=== PATIENT | female | born 1965 | race Caucasian/White ===

== ENCOUNTER 2017-03-25 18:20 | Emergency (ER) | payer BC ==
--- NOTE | ~2017-03-25 | CT4 ---
[facility] A Service of [facility] RADIOLOGY TEXT RESULTS PATIENT: MAGDALENA AMOR LOCATION: SED : 63 UNIT #: [id number] AGE: [address]: LINDA JONAS SEX: F ORDER DR: [id number] [address] [id number] [id number] MR#: [id number] Acc #: [id number] NAME: MAGDALENA AMOR : 1965 SEX: F STUDY DATE/TIME: 03/25/2017 19:20 UNIT: SED ROOM: STUDY DESCRIPTION: CT Abd and Pelv Wo Cont Attending Physician: (Poonam) Linda Jonas Ordering Physician: Ondina Andres A.P.R.N. MEDICAL IMAGING REPORT This report is preliminary unless electronic signature is present. EXAMINATION CT of abdomen and pelvis without contrast. DATE 03/25/2017 HISTORY Left flank pain radiating into left leg for 1 week. TECHNIQUE 5 mm axial images from lung bases through the lesser trochanters without intravenous or enteric contrast administration. Sagittal and coronal reformatted images were obtained. This CT exam was performed with one or more of the following radiation dose reduction techniques: automatic exposure control, adjustment of mA and/or kV according to patient size, and iterative reconstruction. FINDINGS ABDOMEN FINDINGS: Lung bases are clear. Heart size is normal. Cholecystectomy. Noncontrast appearance of the liver, spleen, pancreas, adrenals and kidneys is within normal limits. No urinary tract stone or hydronephrosis or perinephric inflammation is seen. Limited evaluation of bowel due to lack of enteric contrast but no focal bowel inflammation is seen. Presumed appendectomy. PELVIS FINDINGS: Small pelvic phleboliths are present bilaterally. No definite ureteral stone is identified. Urinary bladder is decompressed. Presumed hysterectomy. Rectum within normal limits. No acute osseous abnormalities are identified. Posterior disc osteophyte formation is present at L1-2. There is disc bulge at L5-S1. Mild posterior disc osteophyte formation at T12-L1, as well. [facility] A Service of [facility] RADIOLOGY TEXT RESULTS PATIENT: MAGDALENA AMOR LOCATION: SED : 63 UNIT #: [id number] AGE: [address]: LINDA JONAS SEX: F ORDER DR: IMPRESSION 1. No acute findings . 2. Cholecystectomy, presumed hysterectomy. 2. Degenerative disc bulge at L5-S1, posterior disc osteophyte formation at L1-2. If the patient has symptoms correlating to back pain or suspected radiculopathy, MRI of the lumbar spine without contrast may prove helpful for further evaluation, which can be performed on a nonemergent basis. Dictated by... Trudy Tomas M.D. THIS IS AN ELECTRONICALLY VERIFIED REPORT Trudy Tomas M.D. at 03/29/2017 5:01 PM MARJAN/shahrzad TD: 03/26/2017 01:06 JOB #: [id number] MEDICAL IMAGING REPORT Page 1 of 1
[2017-03-25] MEDS ORDERED: XANAX0.5 M1 (18:26)
[2017-03-25] MEDS ORDERED: HYDROCODON-ACE1 EAC5 (18:27)
[2017-03-25 18:57] LABS: URINE SOURCE CLEAN CATCH
[2017-03-25 19:00] LABS: MICRO INDICATED? YES; URINE APPEARANCE CLEAR; URINE BILIRUBIN NEG (NEG); URINE BLOOD 2+ (NEG); URINE COLOR YELLOW; URINE GLUCOSE NEG (NORM); URINE KETONE TRACE (NEG); URINE LEUKOCYTE ESTERASE NEG (NEG); URINE NITRATE NEG (NEG); URINE PH 5.5 (5-8); URINE PROTEIN NEG (NEG); URINE UROBILINOGEN 0.2 MG/DL (NORM)
[2017-03-25 19:09] LABS: BASOPHIL# 0.1 X10e3 (0-0.3); BASOPHIL% 0.8 % (0-2.5); EOSINOPHIL# 0.1 X10e3 (0-0.7); EOSINOPHIL% 0.6 % (0.0-7.0); HEMATOCRIT 47.9 % (35.0-45.0); HEMOGLOBIN 16.6 gm/dL (12.0-16.0); LYMPHOCYTE# 2.9 X10e3 (1.0-3.5); MEAN CELL VOLUME 92.6 FL (83-96); MEAN CORPUSCULAR HGB CONC 34.5 g/dL (30-36); MEAN PLATELET VOLUME 7.6 FL (6.5-11.5); MONOCYTE# 0.4 X10e3 (0-1.0); MONOCYTE% 4.3 % (3.0-12.0); NEUTROPHIL# 5.4 X10e3 (1.5-7.1); NEUTROPHIL% 61.3 % (40-75); PLATELET COUNT 320 X10e3 (140-420); RED BLOOD COUNT 5.18 X10e (3.90-5.30); WHITE BLOOD COUNT 8.9 X10e3 (4.0-10.5)
[2017-03-25 19:10] LABS: CULTURE INDICATED? NO; URINE BACTERIA NEG (NEG); URINE MUCUS PRESENT; URINE SQUAMOUS EPITHELIAL CELL OCCAS /[HPF]
[2017-03-25 19:11] LABS: DIFF IND NO
[2017-03-25 19:27] LABS: ALBUMIN SERUM 4.5 g/dL (3.5-5.0); BUN/CREATININE RATIO 27.77; CALCIUM SERUM 9.7 mg/dL (8.4-10.2); CREATININE SERUM 0.9 mg/dL (0.6-1.4); GLOM FILT RATE Estimated 73.6 mL/min (>60); POTASSIUM 3.6 mmol/L (3.5-5.1); PROTEIN TOTAL SERUM 7.5 g/dL (6.0-8.3)
== END 2017-03-25 20:19 | disposition home or self-care (01) ==
LOC: SED 18:20
PROVIDERS: Nurse Practitioner Family
DX: G89.29 Other chronic pain (principal); F17.200 Nicotine dependence, unspecified, uncomplicated; Z88.2 Allergy status to sulfonamides; Z98.890 Other specified postprocedural states
CPT/HCPCS: 36415; 74176; 80053; 81003; 84703; 85025; 99284